=== PATIENT | female | born 1940 | race Caucasian/White ===

== ENCOUNTER 2019-06-09 21:04 | Emergency (ER) | payer MEDICARE, BC, SELFPAY ==
--- NOTE | ~2019-06-09 | XR_ITS ---
XR knee LT 3V 06/09/2019 21:47 Indication: Left knee pain Procedure: 3 views left knee Comparison: 05/13/2010 Findings: There is mild osteoarthritis of the left knee. No fracture or traumatic malalignment. No si gnificant joint effusion. Vascular calcifications are present. Impression: 1: No acute fracture. Reviewed, dictated and finalized at location A. OFILM DUPLICATING UNIT SUPERVISOR Impression: 1: No acute fracture.
--- NOTE | ~2019-06-09 | XR_ITS ---
XR shoulder LT min 2V 06/09/2019 21:48 Indication: Left shoulder pain after fall Procedure: 5 views left shoulder Comparison: No prior studies for comparison. Findings: There is a left humeral neck fracture with impaction and mild displacement. Surrounding oss eous structures within normal limits. Lung parenchyma is unremarkable. Impression: 1: Minimally displaced impacted fracture of the left humeral neck. Reviewed, dictated and finalized at location A. INUOUS DRIER OPERATOR Impression: 1: Minimally displaced impacted fracture of the left humeral neck.
--- NOTE | 2019-06-09 21:09 | ED.FALL ---
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 She states that she was going to the restroom and when she got up she tripped on her pants, falling to the ground and landing on her lt side. She reports severe lt shoulder pain and some mild lt knee pain. She notes that she did hit her head but denies any LOC or MILLS. She also denies any wrist pain, N/V/D, ABD pain, CP, or SOB. MD complaint: fall Onset (ago): minute(s) Fall from: standing Place fall occurred: home Loss of consciousness: none Symptoms prior to fall: none Context: tripped/slipped Location of injury - extremities: Left: shoulder and knee Severity: severe Associated symptoms (after fall): denies Related Data Allergies Allergy/AdvReac Type Severity Reaction Status Date / Time amoxicillin Allergy Unknown Verified 06/09/19 21:25 Review of Systems Review of Systems: All systems reviewed & are unremarkable except as noted in HPI and below Cardiovascular: Cardiovascular: Denies chest pain Respiratory: Respiratory: Denies dyspnea Gastrointestinal: Gastrointestinal: Denies abdominal pain, Denies diarrhea, Denies nausea and Denies vomiting Musculoskeletal: Musculoskeletal: Reports other (severe lt shoulder pain and mild lt knee pain. Denies wrist pain.) Neurologic: Denies headache(s) and Denies other (LOC) PMFSH Past Medical History Medical History (Updated 06/09/19 @ 22:03 by Sandeep Allen DO) H/O: HTN (hypertension) Hx of cataract Surgical History Surgical History (Updated 06/09/19 @ 21:14 by Varghese Cordero) History of cataract surgery rt. Hx of tubal ligation Social History Social History Gender identity (if verbalized by the patient): Female Comments PCP: Dr. Saldaña. Exam Narrative: Exam Narrative: APPEARANCE: Well appearing, no apparent distress, well-nourished. HEENT: normocephalic atraumtaic. TMs clear bilaterally. Oral mucosa moist. No facial tenderness EYES: PERRL NECK: Supple. No midline tenderness to palpation. Full range of motion without pain RESPIRATORY: No respiratory distress. Clear to auscultation bilaterally CARDIOVASCULAR: Regular rate and rhythm without murmurs rubs or gallops. ABDOMINAL: Soft, nontender, nondistended, no rebound or guarding MUSCULOSKELETAl: Moves all extremities. No tenderness to palpation of right upper and lower extremities. No clubbing cyanosis or edema tender to palpation over left anterior knee, no swelling or ecchymosis, no tenderness of the left ankle or hip, pain with flexion greater than 45 degrees, dorsalis pedis pulse 2+, neurovascular intact, tender palpation of the left proximal and lateral shoulder, no swelling or ecchymosis, pain with any movement, no tenderness over the left elbow or wrist, radial pulse 2+, neurovascular intact NEURO: Awake and alert ?3. Follows commands. Speech normal. No focal deficits. SKIN:: Warm, dry. Normal Color Course Course Emergency Course: Discussed Dr. Pierre presentation work-up. Request patient placed in sling with follow-up as an outpatient Discussed with patient results of workup and diagnosis. Discussed need for follow-up with primary care, proper use of medication, and reasons to return to the emergency department. Patient understands and agrees to current treatment plan Vital Signs Vital signs: Vital Signs Temperature 98 F 06/09/19 21:21 Pulse Rate 82 06/09/19 21:21 Respiratory Rate 16 06/09/19 21:21 Blood Pressure 154/93 H 06/09/19 21:21 Pulse Oximetry 98 06/09/19 21:21 Temperature 98 F 06/09/19 21:21 Pulse Rate 82 06/09/19 21:21 Respiratory Rate 16 06/09/19 21:21 Blood Pressure 154/93 H 06/09/19 21:21 Pulse Oximetry 98 06/09/19 21:21 Discharg
[2019-06-09 21:21] VITALS: BP 154/93; PULSE 82; RESP 16; TEMP 36.6; O2SAT 98
== END 2019-06-09 22:35 | disposition home or self-care (01) ==
PROVIDERS: Emergency Provider Emergency Medicine
DX: S42.292A Other displaced fracture of upper end of left humerus, initial encounter for closed fracture (principal); I10 Essential (primary) hypertension; Z98.41 Cataract extraction status, right eye; W18.09XA Striking against other object with subsequent fall, initial encounter
CPT/HCPCS: 73030; 73562; 99284; A4565; A9270